=== PATIENT | male | born 1980 | race Caucasian/White ===

== ENCOUNTER 2017-11-14 12:37 | Day surgery (SDC) | payer OTHER ==
[2017-11-11 17:47] VITALS: BMI 30.8
[2017-11-14] MEDS ORDERED: MIDAZOLAM HCL 2 MG/2 ML SINGLE DOSE VIAL ONE (14:01)
[2017-11-14] MEDS ORDERED: PROPOFOL 20 ML ONE ×2 (14:01→14:02)
[2017-11-14] MEDS ORDERED: LIDOCAINE HCL/PF 2% SDV 5ML VIAL ONE (14:02)
[2017-11-14] MEDS ORDERED: DEXAMETHASONE SOD PHOSPHATE 4 MG/1 ML VIAL ONE (14:21)
[2017-11-14] MEDS ORDERED: SODIUM CHLORIDE 0.9% P/F 10 ML VIAL IJ ONE (14:22)
[2017-11-14] MEDS ORDERED: ceFAZolin SODIUM 1 GM VIAL ONE (14:22)
[2017-11-14] MEDS ORDERED: ceFAZolin SODIUM 1 GM VIAL IVPB ONE (14:22)
[2017-11-14] MEDS ORDERED: BUPIVACAINE HCL/PF 0.5% (5MG/ML) 10 ML VIAL IJ ONE (14:32)
[2017-11-14] MEDS ORDERED: KETOROLAC TROMETHAMINE 30 MG/1 ML VIAL ONE (14:40)
[2017-11-14] MEDS ORDERED: ONDANSETRON 4 MG/2 ML VIAL IVPUSH PRN (15:01)
[2017-11-14] MEDS ORDERED: PROMETHAZINE HCL 25 MG/1 ML VIAL IVPUSH PRN (15:01)
[2017-11-14] MEDS ORDERED: LACTATED RINGERS SOLUTION 1,000 ML IV SCH (15:15)
[2017-11-14 16:30] VITALS: TEMP 97.8
[2017-11-14 18:13] VITALS: BP 116/78; PULSE 68
--- NOTE | 2017-11-14 18:49 | OP ---
DATE OF OPERATION: 11/14/2017 PREOPERATIVE DIAGNOSIS: Phimosis and chordae. POSTOPERATIVE DIAGNOSIS: Phimosis and chordae. OPERATIVE PROCEDURE: Circumcision penoplasty. ANESTHESIA: General and penile block. OPERATIVE PROCEDURE: Under general anesthesia, patient is prepped and draped in the usual sterile manner. He is placed in the supine position. A tourniquet was placed at the base of the penis, and approximately 70 mL of normal saline was injected via 25-gauge butterfly into the base of the right corpora cavernosum. An artificial erection revealed chordae of the glans penis due to a short frenulum. Therefore, the tourniquet was released, the circumferential incision was made 1 cm below the rodríguez of the penis. This was carried down through skin and subcutaneous tissue using a Saravia scissors. Hemostasis was secured with electrocoagulation. Fibrous tissue encompassing the portion of the urethra was lysed using a Saravia scissors. The urethra was freed from the corpus spongiosum. A repeat artificial erection revealed straightening of the penis. The frenulum was also excised and suture ligated proximally and distally using 5-0 Dexon suture ligature. Excess foreskin was then excised in a circumferential manner. Again, hemostasis was secured with electrocoagulation. Skin from the glans was then approximated to skin from the shaft using 4-0 chromic suture ligatures. Pressure dressing was applied. The base of the penis was then blocked with 0.25% Marcaine for long-term analgesia. The patient tolerated the procedure well. He returned to the recovery room in good condition. Yuniel [id number]
--- NOTE | 2017-11-15 08:29 | HP ---
DATE OF ADMISSION: HISTORY: The patient is a 37-year-old male with a history of micturition disorder secondary to an inability to retract the penile foreskin. He has had multiple episodes of balanitis treated with antifungals. The patient also complains of curvature at the glans penis causing pain during erections. He has had multiple episodes of frenular bleeding due to the short, scarred frenulum at the ventral aspect of the glans penis. ALLERGIES: He denies any allergies. SOCIAL HISTORY: He does drink socially. Denies tobacco. PHYSICAL EXAMINATION: General: Reveals a well-developed adult male. Chest: Clear. Abdomen: Soft. No CVA tenderness. Genitalia: Reveal normal testes. No hernias or hydroceles are elicited. Phallus reveals a phimotic foreskin with a short, scarred frenulum and a distal penile chordee. Perineum is atraumatic. Normal sensation. Bulbocavernosus was intact. Saddle sensation is present. Prostate is 1+, smooth, benign, and nontender. The patient underwent preoperative laboratory workup. BUN 60, creatinine 0.7. Liver enzymes were all within normal limits. His CBC was also within normal limits. Platelet count was 301. IMPRESSION: At present: 1. Penile chordee. 2. Phimosis balanitis. PLAN: Circumcision and penoplasty. This was explained in detail to the patient, and he agrees. ALEXEY KAY M.D. [id number]
--- NOTE | 2017-11-19 13:25 | PATH ---
Surgical Pathology Report Patient Name: GERDA SZYMANSKI [facility]. Rec. #: [id number] /Age/Gender: 1980 (Age: 37) / M Account: [id number] Location: [facility] SURGICAL Taken: 11/14/2017 Received: 11/17/2017 Reported: 11/19/2017 Physicians: Kai Vo M.D. Specimen(s) Received FORESKIN Clinical History Phimosis Final Diagnosis FORESKIN, CIRCUMCISION: FORESKIN WITH MARKED CHRONIC INFLAMMATION WITH DERMAL SCLEROSIS CONSISTENT WITH BALANITIS XEROTICA OBLITERANS. NO DYSPLASIA OR CARCINOMA IDENTIFIED. Electronically Signed Alexis Ferguson M.D. Gross Description Received in formalin labeled "foreskin," is a 2.8 x 2.0 x 1.0 cm brown, irregular, wrinkled portion of skin, consistent with foreskin. No discrete epidermal lesions are identified. A financial service representative section is submitted in one cassette. /11/17/2017 saudi11/17/2017
== END 2017-11-14 17:30 | disposition home or self-care (01) ==
LOC: JASU-SURG 12:37
PROVIDERS: ATTEND Urology
PROC: 0VNSXZZ Release Penis, External Approach (ICD-10-PCS; 2017-11-14)
PROC: 0VTTXZZ Resection of Prepuce, External Approach (ICD-10-PCS; principal; 2017-11-14 14:00)
DX: N47.1 Phimosis (principal); N48.89 Other specified disorders of penis
CPT/HCPCS: 94760